=== PATIENT | female | born 2000 | race Two or more races ===

== ENCOUNTER 2024-07-06 19:13 | Emergency (ER) | payer SELFPAY ==
[2024-07-06 19:14] VITALS: BMI 31.7
[2024-07-06 19:40] VITALS: BP 124/86; PULSE 72; RESP 20; TEMP 36.8; O2SAT 99
--- NOTE | 2024-07-06 19:59 | PD.EDWOUND ---
ED Wound/Laceration-RME/HPI General Chief Complaint: Wound/Laceration Stated Complaint: CUT TO LEFT HAND Time Seen by Provider: 07/06/24 19:23 Arrival date/time: 07/06/24 19:13 23-year-old female reports with complaints of a laceration to the left hand. Patient states the plate broke cutting the hand. Patient denies any numbness stating stiffness tingling decreased range of motion or weakness of the hand. Patient does not recall last tetanus update. Patient denies chance of Limitations: no limitations Related Data Home Medications ?Medication ?Instructions ?Recorded ?Confirmed naproxen 250 mg tablet 250 mg PO BID PRN Pain 01/06/20 01/06/20 Previous Rx's ?Medication ?Instructions ?Recorded cephalexin 500 mg capsule (Keflex) 500 mg PO QID #40 caps 01/06/20 naproxen 500 mg tablet (Naprosyn) 500 mg PO BID PRN pain #30 tabs 11/11/21 Allergies Allergy/AdvReac Type Severity Reaction Status Date / Time No Known Allergies Allergy Verified 11/11/21 14:38 Review of Systems Constitutional Constitutional: Denies chills, Denies fever(s) and Denies weakness Musculoskeletal Musculoskeletal: Denies deformity, Denies joint swelling, Denies numbness and Denies tingling Integumentary/Breasts Skin/Breast: Denies unusual bruising and Reports wounds Neurologic Neurologic: Denies numbness, Denies tingling and Denies weakness Hematologic/Lymphatic Hematologic/Lymphatic: Denies easy bleeding and Denies easy bruising Past Medical History Past Medical History CARDIAC: Negative Congestive Heart Failure RESPIRATORY: Negative Chronic Obstructive Pulmonary Disease (COPD) GENITOURINARY: Negative Renal Disease ENDOCRINE: Negative Diabetes Mellitus Type 1 or Diabetes Mellitus Type 2 Social History SMOKING STATUS: Never smoker ED Exam General Limitations: Present no limitations General appearance: Present alert and in no apparent distress Expanded Upper Extremity Exam Forearm/Wrist exam: Present normal inspection and full ROM Hand exam: Present full ROM and other (Left hand with a 3 cm laceration dorsal aspect just adjacent to fifth metacarpal bone no ligament or tendon involvement; cap refill less than 2 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) Neurological Exam Neurological exam: Present alert, oriented X3 and CN II-XII intact Psychiatric Psychiatric exam: Present normal affect and normal mood Skin Skin exam: Present warm, dry, intact and normal color Course Quality Measures none Orders Category Date Time Status Irrigate Wound NOW Care 07/06/24 20:02 Active Set Up Suture Tray STAT Care 07/06/24 20:02 Active Lidocaine 1% 20 ml [Xylocaine 1% 20 ML] Med 07/06/24 20:02 Discontinued 10 ml IM X1 ONE TET,DIP/PERT AC (Adult)-Tdap [Boostrix Adult (Tdap) Med 07/06/24 20:02 Discontinued Vacc] 0.5 ml IMI .ONCE ONE Vital Signs Vital signs: Vital Signs Temperature 98.3 F 07/06/24 19:40 Pulse Rate 72 07/06/24 19:40 Respiratory Rate 20 07/06/24 19:40 Blood Pressure 124/86 H 07/06/24 19:40 Pulse Oximetry (%) 99 07/06/24 19:40 Oxygen Delivery Method Room Air 07/06/24 19:40 Procedures -ED Laceration Laceration 1: Site: hand Side (If applicable): left Size (cm): 3 Depth: simple, single layer Local Anesthetic: lidocaine 1% Amount of anesthesia used (mL): 6 Pre-repair: irrigated extensively Skin layer closed with: nylon Size (cm): 3-0 Number of sutures: 2 Technique: simple, interrupted (Well-approximated edges patient tolerated well neurovascular remained intact) Wound / Laceration Patient data External records reviewed:: None Clinical information provided by:: patient Social determinants that could affect healthcare access:: none Patient has the following chronic illnesses:: none How is presenting disease/condition affected by chronic disease/condition?: no chronic disease Evaluation data The following diagnostics were reviewed and interpreted by me:: other (specify) (none) Lab and/or radiology exams considered but not ordered:: none Interpretation Summary: n/a Medications / Prescriptions Medications or Prescriptions considered but not ordered:: none Medication administrations:: Medication Administration History Discontinued Medications Diphtheria/Tetanus/Acell Pertussis (Diphth,Pertuss(Acell),Tet Vac 0.5 Ml Syr- Adult) 0.5 ml IMi .ONCE ONE Stop: 07/06/24 20:03 Last Admin: 07/06/24 20:31 Dose: 0.5 ml Documented By: MARISEL Lidocaine HCl (Lidocaine Hcl 1% 20 Ml Vial) 10 ml IM X1 ONE Stop: 07/06/24 20:03 Last Admin: 07/06/24 20:29 Dose: 10 ml Documented By: MARISEL Comments: given by provider as above Consultations Consultation(s) initiated? (list below): No Diagnosis Wound Differential Diagnosis: laceration, abrasion and avulsion of skin Most likely diagnosis given after review of the tests above:: hand laceration Admission Indicated Admission indicated?: not indicated Admission Request Was there a request for admission?: No Disposition Plan Disposition Plan: Discharge Discharge Attestation Discharge Attestation: The patient and all family members were given an opportunity to ask questions and understood the discharge instructions. Discharge instructions specifically effects, indications for sooner follow up or return to the emergency department, and the expected course of current diagnosis. Patient condition: Stable Discharge Plan Plan Patient Disposition: HOME (Self Care) Prescriptions/Referrals Prescriptions/Med Rec: No Action naproxen 250 mg Tablet 250 mg PO BID PRN (Reason: Pain) cephalexin [Keflex] 500 mg capsule 500 mg PO QID Qty: 40 0RF naproxen [Naprosyn] 500 mg tablet 500 mg PO BID PRN (Reason: pain) Qty: 30 0RF Referrals: Adrian James MD [Primary Care Provider] - In 1 week Problem List Clinical Impression: Laceration of hand, left Patient/Caregiver Discharge Instructions Discharge Activity: activity as tolerated Education Materials: ED Laceration, Hand: All Closures Additional Instructions: Keep the area clean and dry follow-up to primary care provider in 2 days for wound check and then in 10 days to have sutures removed Print Language: Romanian Stand Alone Forms: Gem Award Info., Patient Portal Info Letter Vaccines Vaccines Given During Stay: TDaP
[2024-07-06] MEDS: LIDOCAINE HCL 1% 20 ML VIAL 10 ML IM (20:29)
[2024-07-06] MEDS: DIPHTH,PERTUSS(ACELL),TET VAC 0.5 ML SYR- ADULT IMi (20:31)
== END 2024-07-06 21:53 | disposition home or self-care (01) ==
PROVIDERS: Emergency Provider Emergency Medicine; PCP Family Medicine
DX: S61.412A Laceration without foreign body of left hand, initial encounter (principal); W25.XXXA Contact with sharp glass, initial encounter; Z23 Encounter for immunization
CPT/HCPCS: 12002; 90471; 90715; 99283; J3490